=== PATIENT | female | born 1995 | race Caucasian/White ===

== ENCOUNTER 2017-09-18 21:54 | Emergency (ER) | payer OTHER ==
[2017-09-18 22:02] VITALS: RESP 16; O2SAT 97
[2017-09-18] MEDS ORDERED: NS 1,000 ML IV ONE (22:39)
--- NOTE | 2017-09-18 23:12 | EDPHY ---
H & P Stated Complaint: Sore throat for one week Time Seen by Provider: 09/18/17 23:08 HPI/ROS: HPI: This is a 21-year-old female who presents with Chief Complaint: Sore throat for one week Location: Throat Quality: Sore Duration: 1 week Signs and Symptoms: No fever, no cough, no headache, no neck stiffness, no fatigue, no body aches Timing: Daily, constant Severity: Mild Context: Patient has a history of asthma does not have any inhalers and has not required and sometime. She complains of sore throat for the last week; with some discomfort swallowing but denies fever/chills/neck stiffness/ headache. Last week she flew from [place] to [place]. She reports that she is under a tremendous amount of stress with studying and this evening she felt some shortness of breath and anxiety and "just not feeling right." No local primary care provider. control is implant. She also reports that she has not been eating or drinking as well as she should due to no appetite. Modifying Factors: None Comment: ROS: see HPI Constitutional: No fever, no chills, no weight loss Eyes: No blurred vision Respiratory: No shortness of breath, no cough Cardiovascular: No chest pain Gastrointestinal: No nausea, no vomiting, no diarrhea Genitourinary: No dysuria Extremities: No myalgias Neurologic: No weakness, no numbness Skin: No rashes Hematologic: No bruising, no bleeding MEDICAL/SURGICAL/SOCIAL HISTORY: Medical history: Asthma. Does not take any regular medications. Surgical history: Tonsillecomy, Right knee surgery Social history: Local College student from [place] CONSTITUTIONAL: Extremely well-appearing but anxious young adult white female, awake and alert, no obvious distress HEENT: Atraumatic and normocephalic, PERRL, EOMI. Tympanic membranes clear. Oropharynx clear, uvula midline, note tonsillar hypertrophy/erythema, no exudate and moist pink mucosa. Airway patent. No lymphadenopathy. No meningismus. Cardiovascular: Normal S1/S2, regular rate, regular rhythm, without murmur rub or gallop. PULMONARY/CHEST: Symmetrical and nontender. Clear to auscultation bilaterally. Good air movement. No accessory muscle usage. ABDOMEN: Soft, nondistended, nontender, no rebound, no guarding, no peritoneal signs, no masses or organomegaly. No CVAT. EXTREMITIES: 2/2 pulses, no deformities, no clubbing, no cyanosis or edema. NEUROLOGICAL: no focal neuro deficits. GCS 15. SKIN: Warm and dry, no erythema. no rash. Good capillary refill. Source: Patient Exam Limitations: No limitations - Personal History LMP (Females 10-55): 22-28 Days Ago Current Tetanus/Diphtheria Vaccine: No Current Tetanus Diphtheria and Acellular Pertussis (TDAP): No - Medical/Surgical History Hx Asthma: No Hx Chronic Respiratory Disease: No Hx Diabetes: No Hx Cardiac Disease: No Hx Renal Disease: No Hx Cirrhosis: No Hx Alcoholism: No Hx HIV/AIDS: No Hx Splenectomy or Spleen Trauma: No Other PMH: Tonsillecomy, Right knee surgery - Social History Smoking Status: Current some day smoker Constitutional: Initial Vital Signs Temperature (C) 36.6 C 09/18/17 22:00 Heart Rate 107 H 09/18/17 22:00 Respiratory Rate 16 09/18/17 22:00 Blood Pressure 121/81 H 09/18/17 22:00 O2 Sat (%) 97 09/18/17 22:00 O2 Delivery Mode Room Air Allergies/Adverse Reactions: No Known Allergies Allergy (Unverified 09/18/17 22:03) Home Medications: Medication Instructions Recorded Birthcontrol 09/18/17 Spironolactone [Aldactone 25 MG 09/18/17 (*)] Medical Decision Making - Diagnostics Imaging Results: Imaging Impressions Chest X-Ray 09/18/17 22:38 Impression: No acute thoracic abnormality. ED Course/Re-evaluation: Vital signs reviewed upon arrival and show mild tachycardia, no hypoxia. Afebrile without systemic signs Strep test, chest x-ray, labs, IV fluids ordered Strep negative. No signs of tonsillar abscess/airway compromise. Chest x-ray my read via PACs shows no acute effusion/opacity/pneumothorax Repeat vital signs at discharge show resolution of tachycardia with IV fluids Labs reviewed and grossly unremarkable. D-dimer within normal limits; no signs of pulmonary embolism. Differential Diagnosis: Differential diagnosis includes but is not limited to strep pharyngitis, viral syndrome, anxiety, pneumonia. - Data Points Laboratory Results: Laboratory Results 09/18/17 23:03 09/18/17 23:03 09/18/17 09/18/17 09/18/17 Unknown 23:03 23:03 WBC 9.47 10^3/uL 10^3/uL (3.80-9.50) RBC 4.83 10^6/uL 10^6/uL (4.18-5.33) Hgb 14.7 g/dL g/dL (12.6-16.3) Hct 43.2 % % (38.0-47.0) MCV 89.4 fL fL (81.5-99.8) MCH 30.4 pg pg (27.9-34.1) MCHC 34.0 g/dL g/dL (32.4-36.7) RDW 12.1 % % (11.5-15.2) Plt Count 213 10^3/uL 10^3/uL (150-400) MPV 11.1 fL fL (8.7-11.7) Neut % (Auto) 66.5 % % (39.3-74.2) Lymph % (Auto) 27.1 % % (15.0-45.0) Meagher % (Auto) 5.5 % % (4.5-13.0) Eos % (Auto) 0.4 % L % (0.6-7.6) Baso % (Auto) 0.2 % L % (0.3-1.7) Nucleat RBC Rel Count 0.0 % % (0.0-0.2) Absolute Neuts (auto) 6.29 10^3/uL 10^3/uL (1.70-6.50) Absolute Lymphs (auto) 2.57 10^3/uL 10^3/uL (1.00-3.00) Absolute Monos (auto) 0.52 10^3/uL 10^3/uL (0.30-0.80) Absolute Eos (auto) 0.04 10^3/uL 10^3/uL (0.03-0.40) Absolute Basos (auto) 0.02 10^3/uL 10^3/uL (0.02-0.10) Absolute Nucleated RBC 0.00 10^3/uL 10^3/uL (0-0.01) Immature Gran % 0.3 % % (0.0-1.1) Immature Gran # 0.03 10^3/uL 10^3/uL (0.00-0.10) D-Dimer Sodium 135 mEq/L mEq/L (134-144) Potassium 3.7 mEq/L mEq/L (3.5-5.2) Chloride 99 mEq/L mEq/L (97-110) Carbon Dioxide 24 mEq/l mEq/l (22-31) Anion Gap 12 mEq/L mEq/L (8-16) BUN 13 mg/dL mg/dL (7-23) Creatinine 0.7 mg/dL mg/dL (0.6-1.0) Estimated GFR > 60 Glucose 81 mg/dL mg/dL (70-100) Calcium 9.4 mg/dL mg/dL (8.5-10.4) Beta HCG, Qual Group A Strep Screen Group A Strep DNA Pending 09/18/17 09/18/17 09/18/17 23:03 23:03 22:30 WBC RBC Hgb Hct MCV MCH MCHC RDW Plt Count MPV Neut % (Auto) Lymph % (Auto) Meagher % (Auto) Eos % (Auto) Baso % (Auto) Nucleat RBC Rel Count Absolute Neuts (auto) Absolute Lymphs (auto) Absolute Monos (auto) Absolute Eos (auto) Absolute Basos (auto) Absolute Nucleated RBC Immature Gran % Immature Gran # D-Dimer 0.43 ug/mLFEU ug/mLFEU (0.00-0.50) Sodium Potassium Chloride Carbon Dioxide Anion Gap BUN Creatinine Estimated GFR Glucose Calcium Beta HCG, Qual NEGATIVE Group A Strep Screen NEGATIVE (NEGATIVE) Group A Strep DNA Medications Given: Discontinued Medications Sodium Chloride (Ns) 1,000 mls @ 0 mls/hr IV EDNOW ONE; Wide Open PRN Reason: Protocol Stop: 09/18/17 22:40 Last Admin: 09/18/17 23:06 Dose: 1,000 mls Departure - Departure Disposition: Home, Routine, Self-Care Clinical Impression: Viral syndrome Condition: Good Instructions: Viral Syndrome (ED) Additional Instructions: Your labs and chest x-ray are unremarkable today. You do not have strep throat, blood clots, pneumonia. I suspect you have a viral infection. Please rest as much as possible, drink plenty of fluids to prevent dehydration, use salt water gargles for sore throat as needed, take Tylenol and/or ibuprofen as needed for pain/fever/headache. Referrals: EILEEN,STUDENT [Other] - As per Instructions
[2017-09-18 23:14] LABS: % IMMATURE GRANULYOCYTES 0.3 % (0.0-1.1); ABSOLUTE IMMATURE GRANULOCYTES 0.03 10^3/uL (0.00-0.10); ADD DIFF? NO; ADD MORPH? NO; ADD SCAN? NO; ATYPICAL LYMPHOCYTE FLAG 10 (0-99); FRAGMENT RBC FLAG 0 (0-99); HEMATOCRIT 43.2 % (38.0-47.0); HEMOGLOBIN 14.7 g/dL (12.6-16.3); LEFT SHIFT FLG 0 (0-99); LIPEMIA HEMOLYSIS FLAG 90 (0-99); MEAN CELL HEMOGLOBIN 30.4 pg (27.9-34.1); MEAN CELL VOLUME 89.4 fL (81.5-99.8); MEAN PLATELET VOLUME 11.1 fL (8.7-11.7); PLATELET CLUMPS FLAG 0 (0-99); PLATELET COUNT 213 10^3/uL (150-400); RED BLOOD CELL COUNT 4.83 10^6/uL (4.18-5.33); RED CELL DISTRIBUTION WIDTH 12.1 % (11.5-15.2)
[2017-09-18 23:24] LABS: ANION GAP 12 mEq/L (8-16); CALCIUM 9.4 mg/dL (8.5-10.4); CARBON DIOXIDE 24 mEq/l (22-31); CHLORIDE 99 mEq/L (97-110); CREATININE 0.7 mg/dL (0.6-1.0); GLOMERULAR FILTRATION RATE > 60; GLUCOSE 81 mg/dL (70-100); POTASSIUM 3.7 mEq/L (3.5-5.2); SODIUM 135 mEq/L (134-144)
[2017-09-18 23:52] VITALS: BP 116/51; PULSE 82; TEMP 98.4
== END 2017-09-18 23:51 | disposition home or self-care (01) ==
DX: B34.9 Viral infection, unspecified (principal); E86.9 Volume depletion, unspecified; F17.200 Nicotine dependence, unspecified, uncomplicated

== ENCOUNTER 2017-12-09 11:01 | Emergency (ER) | payer OTHER ==
[2017-12-09 11:09] VITALS: RESP 16; TEMP 98.4
[2017-12-09] MEDS ORDERED: IBUPROFEN 600 MG TAB PO ONE (11:45)
--- NOTE | 2017-12-09 12:02 | EDPHY ---
H & P Stated Complaint: ovarian cyst Time Seen by Provider: 12/09/17 12:02 Source: Patient Exam Limitations: No limitations - Personal History LMP (Females 10-55): 8-14 Days Ago Current Tetanus Diphtheria and Acellular Pertussis (TDAP): Yes - Medical/Surgical History Hx Asthma: No Hx Chronic Respiratory Disease: No Hx Diabetes: No Hx Cardiac Disease: No Hx Renal Disease: No Hx Cirrhosis: No Hx Alcoholism: No Hx HIV/AIDS: No Hx Splenectomy or Spleen Trauma: No Other PMH: Tonsillecomy, Right knee surgery - Social History Smoking Status: Current some day smoker Constitutional: Initial Vital Signs Temperature (C) 36.9 C 12/09/17 11:06 Respiratory Rate 16 12/09/17 11:06 Blood Pressure 143/83 H 12/09/17 11:06 O2 Sat (%) 96 12/09/17 11:06 O2 Delivery Mode Room Air Allergies/Adverse Reactions: No Known Allergies Allergy (Unverified 09/18/17 22:03) Home Medications: Medication Instructions Recorded Birthcontrol 09/18/17 Spironolactone [Aldactone 25 MG 09/18/17 (*)] Hydrocodone/APAP 5/325 [[place] 1 - 2 each PO Q4-6PRN PRN #20 tab 12/09/17 5/325] Ibuprofen [Motrin] 800 mg PO Q8 #20 tab 12/09/17 Medical Decision Making - Diagnostics Imaging Results: Imaging Impressions Pelvic/Renal Ultrasound 12/09/17 12:07 Impression: 1. Normal ovaries. No ovarian cyst, free fluid, or torsion. 2. Normal uterus and endometrial lining. No leiomyoma. Findings discussed with alpesh Dubois working with Emergency Department physician, Yordan Kong MD at 12/09/2017 14:00. Imaging: Discussed imaging studies w/ scallop cutter Radiologist ED Course/Re-evaluation: CHIEF COMPLAINT: Ovarian cyst pain HISTORY OF PRESENT ILLNESS: The patient is a 22-year-old female she was diagnosed with left ovarian cyst 1 month ago. Last night she developed left suprapubic pain that is significantly worse than her previous pain. The patient denies as she is on control. REVIEW OF SYSTEMS: A 10 point review of systems was performed and is negative with the exception of the elements mentioned in the history of present illness. PHYSICAL EXAM: HR, BP, O2 Sat, RR. Temp noted General Appearance: Alert, well hydrated, appropriate, and non-toxic appearing. Head: Atraumatic without scalp tenderness or obvious injury Eyes: Pupils equal, round, reactive to light and accommodation, EOMI, no trauma , no injection. Neck: Supple, 2+ carotid upstroke, nontender, no lymphadenopathy. Respiratory: No retractions, no distress, no wheezes, and no accessory muscle use. Lungs are clear to auscultation bilaterally. Cardiovascular: Regular rate and rhythm, no murmurs, rubs, or gallops. Bilateral carotid, radial, dorsalis pedis, and posterior tibial pulses intact. Good capillary refill all extremities. Gastrointestinal: Abdomen is soft, left suprapubic tenderness. Musculoskeletal: Normal active ROM of all extremities, atraumatic. Neurological: Alert, appropriate, and interactive. The patient has normal DTRs and non-focal cranial nerves, motor, sensory, and cerebellar exam. Skin: No rashes, good turgor, no nodules on palpation. Past medical history: Ovarian cyst Past surgical history: Denies. Family history: Noncontributory. Social history: Single. [place]. DIAGNOSTICS/PROCEDURES/CRITICAL CARE TIME: Pelvic ultrasound called to me by the radiologist shows small simple follicle in the left ovary. No torsion. No free fluid. DIFFERENTIAL DIAGNOSIS: The differential diagnosis for the patient's abdominal pain included but was not limited to ovarian cyst, pelvic inflammatory disease, ovarian torsion, urinary tract infection, ectopic , cholecystitis, and appendicitis. MEDICAL DECISION MAKING: Patient with known ovarian cyst presents with worsening pain at the site of her left ovarian cyst. Plan for pelvic ultrasound to look for recurrent ovarian cyst. She received Ibuprofen in the ED. Her pelvic ultrasound shows follicular cyst in the left ovary. Plan to discharge the patient home with pain medication for severe pain. - Data Points Medications Given: Discontinued Medications Ibuprofen (Motrin) 600 mg PO EDNOW ONE Stop: 12/09/17 11:46 Last Admin: 12/09/17 11:49 Dose: 600 mg Departure - Departure Disposition: Home, Routine, Self-Care Clinical Impression: Follicular cyst of left ovary Condition: Good Instructions: Ovarian Cyst (ED) Additional Instructions: I recommend 600mg Ibuprofen every 6 to 8 hours as needed for pain. Take pain medication as directed for severe pain. Drink plenty of fluids. Follow up with your Hat Brim And Crown Laminating Operator or PCP as needed. Return to the Emergency Department with new or worsening symptoms. Referrals: EMILIANO CHEEMA [Other] - As per Instructions Prescriptions: Hydrocodone/APAP 5/325 [[place] 5/325] 1 - 2 each PO Q4-6PRN PRN #20 tab PRN Reason: Pain, Moderate Ibuprofen [Motrin] 800 mg PO Q8 #20 tab Report Scribed for: Yordan Kong Report Scribed by: Cheryl Gomez Date of Report: 12/09/17 Time of Report: 12:09
[2017-12-09 14:23] VITALS: BP 142/84; PULSE 16; O2SAT 97
== END 2017-12-09 14:21 | disposition home or self-care (01) ==
DX: N83.02 Follicular cyst of left ovary (principal); F17.200 Nicotine dependence, unspecified, uncomplicated

== ENCOUNTER → 2018-02-09 | Emergency (ER) | payer OTHER ==
[2018-02-09 19:33] VITALS: BP 127/89; PULSE 70; RESP 16; TEMP 97.3; O2SAT 95
== END | disposition left against medical advice (07) ==
DX: Z53.21 Procedure and treatment not carried out due to patient leaving prior to being seen by health care provider (principal)

== ENCOUNTER → 2018-06-11 | Outpatient (CLI) | payer OTHER, BC | LOC: BMCIMAGING 13:02 | PROVIDERS: ATTEND Emergency Medicine | DX: S79.911A Unspecified injury of right hip, initial encounter (principal) ==

== ENCOUNTER → 2018-08-19 | Outpatient (CLI) | payer BC | LOC: FIMAGING 18:41 | PROVIDERS: ATTEND Physician Assistant | DX: R42 Dizziness and giddiness (principal) ==

== ENCOUNTER → 2018-10-12 | Outpatient (CLI) | payer BC | LOC: BMCIMAGING 12:17 | PROVIDERS: ATTEND Family Medicine | DX: M25.572 Pain in left ankle and joints of left foot (principal) ==

== ENCOUNTER → 2019-01-08 | Outpatient (CLI) | payer BC | LOC: BMCIMAGING 12:37 | PROVIDERS: ATTEND Emergency Medicine | DX: S29.9XXA Unspecified injury of thorax, initial encounter (principal); R06.89 Other abnormalities of breathing; W19.XXXA Unspecified fall, initial encounter; Y92.9 Unspecified place or not applicable; Y93.9 Activity, unspecified; Y99.9 Unspecified external cause status ==

== ENCOUNTER 2019-03-09 00:57 | Emergency (ER) | payer BC ==
--- NOTE | 2019-03-09 01:25 | EDPHY ---
H & P Stated Complaint: ETOH and marijuana tonight had a screaming episode recent dx bipolar Time Seen by Provider: 03/09/19 01:08 HPI/ROS: HPI The patient presents with concern for panic attack, brought in by her friend. The patient was out tonight and had about 6 alcoholic drinks throughout the course of the evening. She also smoked marijuana about 1 hr ago. She got in the car of her sober friend and then began to scream. She said that she was feeling very anxious, outside of her body, with her heart racing and felt like it was hard to breathe. This lasted for about 20 min and then gradually began to improve. She has no prior history of similar. She was diagnosed with bipolar disorder in September of 2018 and has been on Lamictal and Trileptal ever since. She denies any SI or HI.. REVIEW OF SYSTEMS 10 systems were reviewed and negative with the exception of the elements mentioned in the history of present illness. PMHx: Bipolar disorder Soc Hx: College pavan, alcohol and marijuana use, here with her friend PHYSICAL General Appearance: Alert, no distress Eyes: Pupils equal and round no pallor or injection ENT, Mouth: Mucous membranes moist Respiratory: There are no retractions, lungs are clear to auscultation Cardiovascular: Regular rate and rhythm Gastrointestinal: Abdomen is soft and non-tender, no masses, bowel sounds normal Neurological: A&O, moves all extremities Skin: Warm and dry, no rashes Musculoskeletal: Neck is supple non tender Extremities: symmetrical, full range of motion Psychiatric: Patient is oriented X 3, there is no agitation Source: Patient Exam Limitations: No limitations - Personal History LMP (Females 10-55): Extended Cycle BCP/Inj Current Tetanus/Diphtheria Vaccine: Unsure Current Tetanus Diphtheria and Acellular Pertussis (TDAP): Unsure - Medical/Surgical History Hx Asthma: Yes Hx Chronic Respiratory Disease: No Hx Diabetes: No Hx Cardiac Disease: No Hx Renal Disease: No Hx Cirrhosis: No Hx Alcoholism: No Hx HIV/AIDS: No Hx Splenectomy or Spleen Trauma: No Other PMH: Tonsillecomy, Right knee surgery, BPD, ANXIETY, FRAGILE BONE DISORDER , bipolar - Social History Smoking Status: Current some day smoker Constitutional: Initial Vital Signs Temperature (C) 37.1 C 03/09/19 01:02 Heart Rate 107 H 03/09/19 01:02 Respiratory Rate 16 03/09/19 01:02 Blood Pressure 141/101 H 03/09/19 01:02 O2 Sat (%) 94 03/09/19 01:02 O2 Delivery Mode Room Air Allergies/Adverse Reactions: No Known Allergies Allergy (Verified 03/09/19 01:05) Home Medications: Medication Instructions Recorded Birthcontrol 09/18/17 [place] Carbonate 03/09/19 Trileptal 03/09/19 Medical Decision Making Differential Diagnosis: 23-year-old female with history of bipolar disorder on medication presents with what sounds like an anxiety attack, now mostly resolved. She has no prior history of anxiety attack in the past. This was in the setting of marijuana and alcohol use which could have contributed to her symptoms. Here, she is slightly tachycardic, though generally well-appearing. Plan to observe her here in the emergency department, I am hesitant to give her a benzodiazepine given her alcohol intoxication. Given that she does not have any suicidal or homicidal thoughts, I anticipate she will be able to discharge home with her friend. Departure - Departure Disposition: Home, Routine, Self-Care Clinical Impression: Anxiety attack, Marijuana use Alcohol intoxication Qualifiers: Complication of substance-induced condition: uncomplicated Qualified Code(s): F10.920 - Alcohol use, unspecified with intoxication, uncomplicated Condition: Good Instructions: Anxiolysis in Adults (ED), Anxiety (ED) Additional Instructions: Please make sure to get plenty of rest and take it easy over the next 24 hr. Please avoid alcohol or marijuana as these may have worsened her panic attack. Please return to the emergency department if your feeling unsafe in any way. Referrals: Le Rodriguez PA [Primary Care Provider] - As per Instructions
[2019-03-09] MEDS ORDERED: ONDANSETRON DISINTEGRATING 4 MG TAB PO ONE (02:30)
[2019-03-09 02:37] VITALS: BP 90/51
== END 2019-03-09 02:40 | disposition home or self-care (01) ==
DX: F41.9 Anxiety disorder, unspecified (principal); F10.920 Alcohol use, unspecified with intoxication, uncomplicated; F12.90 Cannabis use, unspecified, uncomplicated